=== PATIENT | female | born 1990 | race Caucasian/White ===

== ENCOUNTER 2016-05-01 17:19 | Emergency (ER) | payer BC ==
[2016-05-01] MEDS ORDERED: PRENATAL-U CAPS1 CAP PO (18:42)
[2016-05-01] MEDS ORDERED: MILK OF MAGNESIA PO (18:42)
[2016-05-01] MEDS ORDERED: COLACE100 M1 PO (18:42)
[2016-05-01 19:26] LABS: HCT-HEMATOCRIT 40.5 % (34.0-49.0); HGB-HEMOGLOBIN 13.8 gm/dl (12.0-15.5); IMMATURE GRANULOCYTES ABSOLUTE 0.02 tho/cmm (0-0.03); IMMATURE GRANULOCYTES PERCENT 0.2 % (0-0.3); LYMPH % 6.8 % (20-45); LYMPH ABSOLUTE COUNT 0.6 tho/cmm (0.8-4.5); MCHC MEAN CORPUSCULAR HGB CONC 34.1 % (32.0-36.0); MEAN PLATELET VOLUME 11.3 cmc (9.4-12.4); MONO % 1.9 % (0-12); MONOCYTE ABSOLUTE COUNT 0.2 tho/cmm (0.0-1.2); NEUTROPHIL ABSOLUTE COUNT 7.8 tho/cmm (1.6-8.0); NEUTROPHIL-AUTOMATED 7.8 tho/cmm (1.6-8.0); NEUTROPHILS % 91.1 % (40-80); PLATELET COUNT 201 tho/cmm (150-450); RED BLOOD COUNT 4.45 mil/cmm (4.00-5.20); RED CELL DISTRIBUTION WIDTH 12.3 % (12.4-16.4); WHITE BLOOD COUNT 8.5 tho/cmm (4.0-10.0)
[2016-05-01 19:44] LABS: ANION GAP 12 mmol/L (0-20); BLOOD UREA NITROGEN 6 mg/dl (6-24); CALCIUM 8.8 mg/dl (8.5-10.5); CARBON DIOXIDE-VENOUS 25 mmol/L (22-32); CHLORIDE 107 mmol/l (96-110); CREATININE 0.63 mg/dl (0.50-1.10); GLUCOSE 91 mg/dL (70-110); SODIUM 140 mmol/L (135-145); eGFR VALUE FOR BLACK >90 mL/Min
[2016-05-01 20:25] LABS: URINE APPEARANCE CLEAR; URINE BILIRUBIN SMALL (NEG); URINE BLOOD MODERATE (NEG); URINE COLOR YELLOW; URINE GLUCOSE (UA) NEGATIVE (NEG); URINE KETONE LARGE (NEG); URINE LEUKOCYTE ESTERASE POSITIVE (NEG); URINE NITRITE NEGATIVE (NEG); URINE PROTEIN MODERATE (NEG); URINE SPECIFIC GRAVITY 1.025 (1.003-1.030)
[2016-05-01 20:39] LABS: URINE BACTERIA 1+; URINE MUCUS 3+
[2016-05-01] MEDS ORDERED: MACROBID 100 M100 M1 PO (22:19)
[2016-05-01] MEDS ORDERED: PROMETHAZINE HC25 M3 PO (22:19)
== END 2016-05-01 22:30 ==
LOC: EDMED 17:19
PROVIDERS: Emergency Medicine
DX: N39.0 Urinary tract infection, site not specified (principal); R19.7 Diarrhea, unspecified
CPT/HCPCS: J2550; J7030